=== PATIENT | male | born 1965 | race Caucasian/White ===

== ENCOUNTER 2021-09-04 13:15 | Outpatient (RCR) | payer BC, SELFPAY ==
--- NOTE | 2021-08-14 09:15 | PTOPEVAL ---
PHYSICAL THERAPY EVALUATION AND PLAN OF CARE Thank you for referring Qamar Phillips to [facility].? The patient is scheduled to be seen for therapy? 2x/week for 4 weeks. Please review, sign, date and return this plan of care [place]. I agree with and certify that the following plan of care is medically necessary. Referring Physician Date Attending Provider: Jonah Cartwright APN Diagnosis left knee pain Onset 07/21/21 Subjective Information Qamar is here today after Query Text:As Reported By Patient/ acute left knee pain after Family working in the yard. He had an aspiration and steroid injection which was very successful. About a week ago he tweaked the knee again and it swelled quite a bit. He went back to crutches and is weaning off of them again. It is again starting to feel better. Self Report Pain Assessment Left Knee(s) Reported Pain Level 3 Pain Description Aching,Tightness Pain Frequency Acute Greatest Pain Intensity 5 Knee Range of Motion Left Knee Flexion Range of Motion - Active 111 Knee Extension Range of Motion - Active -5 Query Text: Knee Range of Motion Limitations Edema Lower Extremity Muscle Strength Testing Hip Strength Left Hip Flexion Strength 5 Normal Hip Extension Strength 4 Good Hip Abduction Strength 4 Good Hip Strength Comments atrophy noted to left gluteus medius and minimus Knee Strength Left Knee Flexion Strength 4+ Good + Knee Extension Strength 3+ Fair + Knee Strength Comments fair quad set - increased pain with full quad set Gait Pattern Trendelenburg Gait Other Gait Observations ambulated into clinic with single crutch but carried is mot of the way back; we discussed at length the opportunities to use crutches, such as when he is limping or if the pain requires him to use crutches; otherwise I encouraged him to ambulate as normally as he can without an assistive device. Stair Climbing Assistive Technique Alternating Steps Stair Climbing Direction Both Up and Down Stair Climbing Comments cautious both ascending and
--- NOTE | 2021-09-04 13:53 | PTOPEVAL ---
PHYSICAL THERAPY DISCHARGE NOTE Thank you for referring Qamar Phillips to [facility].? Please review, sign, date and return this plan of care [facility]. I agree with and certify that the following plan of care is medically necessary. Referring Physician Date Attending Provider: Jonah Cartwright APN Diagnosis left knee pain Onset 07/21/21 Subjective Information Qamar reports that he nay bout Query Text:As Reported By Patient/ 85% better and plateaued. He Family has some minor swelling that makes him aware of the knee but not real pain. Can do for himself what he wants and needs. Does have concern that the knee will interfere on occasion. Self Report Self Report Pain Level 0 Lower Extremity Range of Motion Knee Range of Motion Left Knee Flexion Range of Motion - Active 132 Knee Extension Range of Motion - Active 0 Query Text: Lower Extremity Muscle Strength Testing Hip Strength Left Hip Flexion Strength 5 Normal Hip Extension Strength 5 Normal Hip Abduction Strength 5 Normal Knee Strength Left Knee Flexion Strength 5 Normal Knee Extension Strength 5 Normal Gait Assessment Gait Pattern Assessment Gait Pattern No Deviations/Normal Stair Climbing Assessment Stair Climbing Assessment Stair Climbing Assistive Devices None Technique Alternating Steps Stair Climbing Direction Both Up and Down Stair Climbing Ability Independent PT Clinical Summary Qamar has participated in 3 weeks of physical therapy to address acute left knee pain with suspected meniscus tear. He reports that generally feeling very good with no significant concerns other than what might happen in the future. He no longer requires skilled PT. Will d/c at this time.
== END 2021-09-05 14:40 | disposition home or self-care (01) ==
LOC: ANHPT 13:15
PROVIDERS: PCP Family Medicine; Visit Provider Nurse Practitioner
DX: M25.562 Pain in left knee (principal)
CPT/HCPCS: 97110; 97112; 97140; 97161; 97530

== ENCOUNTER 2022-05-09 19:31 | Emergency (ER) | payer BC, SELFPAY ==
[2022-05-09] VITALS (20 sets, daily range): BP systolic 122–172; BP diastolic 72–88; PULSE 67–102; RESP 7–20; TEMP 36.6; O2SAT 94–100
--- NOTE | ~2022-05-09 | XR_ITS ---
EXAMINATION: XR chest 2V DATE: 05/09/2022 20:02 INDICATION: Palpitations TECHNIQUE: PA and lateral views of the chest were obtained. COMPARISON: Chest radiograph dated 08/30/2016 FINDINGS: Again seen is hyperexpansion of lungs with mild flattening of the diaphragm on the lateral projection . There is unchanged mild blunting at the bilateral costophrenic angles and posterior sulci most like ly pleural-parenchymal scarring although cannot exclude tiny bilateral pleural effusions. Mild linear atelectasis at the lingula. No other airspace opacities, pulmonary edema or pneumothorax. The cardio mediastinal silhouette is normal. Unchanged mild to moderate thoracic spondylosis with minimal to mil d anterior wedging of a few mid to lower thoracic vertebral bodies. IMPRESSION: 1. Chronic hyperexpansion of lungs with unchanged mild blunting at the costophrenic angles and independent freight agent ior sulci suggestive diagnostic of COPD with associated bibasilar pleural-parenchymal scarring versus less likely tiny pleural effusions. Reviewed, dictated and finalized at location A. HER INSTRUMENTAL IMPRESSION: 1. Chronic hyperexpansion of lungs with unchanged mild blunting at the costophr enic angles and posterior sulci suggestive diagnostic of COPD with associated b ibasilar pleural-parenchymal scarring versus less likely tiny pleural effusions .
--- NOTE | 2022-05-09 19:42 | ECG_ITS ---
Measurements Intervals [place] Rate: 89 P: 69 FL: 170 QRS: 47 QRSD: 103 T: 72 QT: 348 QTc: 424 Interpretive Statements SINUS RHYTHM WITH OCCASIONAL SUPRAVENTRICULAR PREMATURE COMPLEXES INCOMPLETE RIGHT BUNDLE BRANCH BLOCK [90+ ms QRS DURATION, TERMINAL R IN V1/V2, 40+ ms S IN I/aVL/V4/V5/V6] NO PREVIOUS ECG AVAILABLE FOR COMPARISON Electronically Signed On 05-10-2022 15:34:47 PRODUCTION HONING MACHINE OPERATOR by Tere Mosqueda M.D.
[2022-05-09 20:10] LABS: Basophils Percent Auto 0.3 % (0.2-1.2); Eosinophils Absolute Auto 0.1 K/mm3 (0-0.3); Eosinophils Percent Auto 1.6 % (0-4.4); Hematocrit 42.7 % (42.0-52.0); Hemoglobin 14.4 g/dL (14.0-18.0); Immature Granulocyte Absolute 0.02 K/mm3 (0.00-0.031); Immature Granulocyte Percent A 0.3 % (0-0.5); Lymphocytes Percent Auto 31.3 % (18.3-44.2); Mean Corpuscular HGB Conc 33.7 g/dl (32-36); Mean Corpuscular Hemoglobin 30.5 pg (26-34); Mean Corpuscular Volume 90.5 fl (80-100); Mean Platelet Volume 8.8 fl (7.4-10.4); Monocytes Absolute Auto 0.6 K/mm3 (0.1-0.6); Monocytes Percent Auto 8.8 % (2.6-8.5); Neutrophils Absolute Auto 3.7 K/mm3 (1.3-6.7); Neutrophils Percent Auto 57.7 % (45.5-73.1); Platelet Count Result 213 k/mm3 (150-375); Red Blood Count 4.72 M/mm3 (4.6-6.20); Red Cell Distribution Width 12.9 % (11.5-14.5); White Blood Count 6.4 K/mm3 (4.5-10.0)
[2022-05-09 20:24] LABS: Alanine Aminotransferase 42 U/L (6-50); Albumin Level 4.6 g/dL (3.5-5.1); Alkaline Phosphatase 62 U/L (38-126); Anion Gap 8 mmol/L (8-16); Aspartate Amino Transferase 28 U/L (17-59); Bilirubin,Total 0.7 mg/dL (0.2-1.3); Blood Urea Nitrogen 15 mg/dL (9-20); Calcium 9.2 mg/dL (8.4-10.2); Carbon Dioxide 30 mmol/L (22-30); Chloride 103 mmol/L (98-107); Estimated CRCL calculation 92 ml/min; Estimated Glomerular Filt Rate > 60; Glucose 180 mg/dL (65-110); Lipase 98 U/L (23-300); Potassium 3.4 mmol/L (3.4-5.0); Sodium 141 mmol/L (137-145)
[2022-05-09 20:30] LABS: INR 1.1; Prothrombin Time 13.7 Seconds (11.1-14.7)
[2022-05-09 20:34] LABS: Troponin I < 0.012 ng/mL (0.000-0.034)
--- NOTE | 2022-05-09 21:28 | ED.ARRPALP ---
HPI - Arrhythmia/Palpitations General Chief Complaint: Arrhythmia/Palpitations Stated Complaint: disrhythmia Time Seen by Provider: 05/09/22 20:55 History of Present Illness HPI narrative: Patient is a 57-year-old male with a history of hyperlipidemia presenting with palpitations. Patient states that for the last 3 days he has been feeling generally unwell. States that he just does not feel right. Reports having palpitations for the last day or so. States it feels like his heart is skipping a beat. He denies lightheadedness, diaphoresis, chest pain, shortness of breath. States that he has been urinating more frequently lately but denies dysuria or hematuria. States that today he has had a headache as well as decreased appetite. Denies numbness or weakness, fevers, rhinorrhea, sore throat, cough, abdominal pain, nausea or vomiting. Reports several episodes of diarrhea. Related Data Home Medications Medication Instructions Recorded Confirmed aspirin 81 mg tablet,delayed 81 mg PO DAILY 07/25/21 05/14/22 release (Anjali Low Dose Aspirin) multivitamin 1 tablet PO DAILY 09/06/21 05/14/22 Allergies Allergy/AdvReac Type Severity Reaction Status Date / Time No Known Allergies Allergy Verified 05/14/22 09:25 Review of Systems Review of Systems: All systems reviewed & are unremarkable except as noted in HPI and below PMFSH Past Medical History Medical History Mixed hyperlipidemia Normal colonoscopy (~2018) Pre-diabetes Surgical History Surgical History Cataract extraction status, right eye No history of previous surgery Family History Family History Mother Patient's mother is in good health Father Patient's father is in good health Family history of elevated blood lipids Grandparent Family history of malignant neoplasm of brain Family history of heart disease in male family member before age 55 Social History Social History (Updated 05/14/22 @ 09:28 by Pari Go [employer]ICE PSYCHIATRIC NURSE) Smoking status: Never smoker Second hand tobacco smoke exposure: No Smoking end date: 04/01/14 Alcohol intake: current Drinks per week: 5 Substance use: never Substance use type: does not use Lack of Transportation: No Lack of Food: Never True Current Housing: I Have Housing Concerned About Future Housing: No Difficulty Paying Gas/Electric Bills: No Difficulty Paying for Meds: No Currently Unemployed: No Education: Bachelor's Degree Difficulty w/ Childcare or Family Care: No Spiritual care concerns: No Agree to blood products: Yes Exam Narrative: GENERAL: Well-appearing, well-nourished, and in no acute distress. HEAD: Normocephalic, atraumatic. EYES: PERRLA and EOMI. ENT: Nares clear, no rhinorrhea or epistaxis. Mucous membranes moist. NECK: Supple. CHEST: Clear to auscultation. No respiratory distress. HEART: Regular rate and rhythm. No murmur heard. Normal peripheral pulses. ABDOMEN: Soft, nontender, nondistended EXTREMITIES: Normal range of motion. No edema. SKIN: Warm, dry, no rash. NEURO: No focal deficits. Alert and oriented x3. PSYCH: Normal mood and affect. Course Vital Signs Vital signs: Vital Signs Temperature 97.8 F 05/09/22 19:39 Pulse Rate 102 H 05/09/22 19:39 Respiratory Rate 18 05/09/22 19:39 Blood Pressure 172/88 H 05/09/22 19:39 Pulse Oximetry 100 05/09/22 19:39 Temperature 97.8 F 05/09/22 19:39 Pulse Rate 74 05/09/22 23:45 Respiratory Rate 15 05/09/22 23:45 Blood Pressure 126/76 05/09/22 23:35 Pulse Oximetry 94 05/09/22 23:35 MDM - Arrhythmia/Palpitations MDM Narrative Medical decision making narrative: Patient is a 57-year-old male presenting with general malaise, headache, and palpitations. Patient was hypertensive on arrival. He was
[2022-05-09] MEDS: KETOROLAC 15 MG/ML VIAL (*BKC) IV PUSH (21:31)
[2022-05-09] MEDS: SODIUM CHLORIDE 0.9% IV 1,000 ML 999 ML IV CONT (21:32)
[2022-05-09 21:41] LABS: Appearance Urine Clear (Clear); Bilirubin Urine Negative (Negative); Blood Urine Trace-intact (Negative); Color Urine Yellow (Yellow); Glucose Urine UA Negative (Negative); Ketones Urine Negative (Negative); Leukocyte Esterase Ur Negative LEU/UL (Negative); Nitrate Urine Negative (Negative); Protein Urine Negative (Negative); Specific Grav Ur 1.015 (1.001-1.035); Urobilinogen Urine 0.2 mg/dL (<2.0)
[2022-05-09 21:48] LABS: NT Pro B Type Natriuretic Pept 25 pg/mL (19.9-100)
[2022-05-09 21:56] LABS: Add Urine Microscopic? YES
[2022-05-09 22:19] LABS: Influenza A QL RT-PCR Negative (Negative); Influenza B QL RT-PCR Negative (Negative); RSV RNA, RT-PCR Negative (Negative); SARS-CoV-2 RNA PCR Negative
[2022-05-09 22:24] LABS: Hemoglobin A1C 5.6 % (<5.7)
[2022-05-09 23:22] LABS: Troponin I < 0.012 ng/mL (0.000-0.034)
== END 2022-05-09 23:52 | disposition home or self-care (01) ==
PROVIDERS: Emergency Provider Emergency Medicine; PCP Family Medicine
DX: R00.2 Palpitations (principal); R51.9 Headache, unspecified; R53.81 Other malaise; Z20.822 Contact with and (suspected) exposure to COVID-19
CPT/HCPCS: 36415; 71046; 80053; 81001; 83036; 83690; 83735; 83880; 84439; 84443; 84484; 85025; 85610; 85730; 87637; 93005; 96361; 96365; 96375; 99284; J0131; J1885; J7030

== ENCOUNTER 2024-08-07 08:28 | Outpatient (CLI) | payer BC, SELFPAY ==
--- NOTE | ~2024-08-07 | XR_ITS ---
XR cervical spine 4-5V 08/07/2024 08:43 Indication: Cervicalgia Procedure: 6 view cervical spine including flexion/extension views Comparison: No prior studies for comparison. Findings: Straightening of cervical lordosis. There is degenerative anterolisthesis at C4-5. There is disc narrowing at C5-6 and C6-7. Odontoid process is normal. There is left-sided facet hypertrophy a t C3-4, C4-5 and C5-6. No prevertebral soft tissue swelling. No alteration of alignment with flexion/ extension. Impression: 1: Moderate cervical spondylosis. Reviewed, dictated and finalized at location A. Impression: 1: Moderate cervical spondylosis.
== END 2024-08-07 08:29 | disposition home or self-care (01) ==
LOC: MICIMG 08:28
PROVIDERS: PCP Family Medicine; Visit Provider Family Medicine
DX: M43.02 Spondylolysis, cervical region (principal)
CPT/HCPCS: 72050

== ENCOUNTER 2025-03-29 09:57 | Outpatient (CLI) | payer BC, SELFPAY ==
--- NOTE | ~2025-03-29 | XR_ITS ---
XR knee LT 3V INDICATION: M25.562 - Pain in left knee . COMPARISON: None. FINDINGS: 3 views of the left knee demonstrate no acute fracture or dislocation. There is no joint effusion. IMPRESSION: Radiographic examination of the left knee demonstrates no acute fracture or dislocation. Reviewed, dictated and finalized at location S. ER MOLDER IMPRESSION: Radiographic examination of the left knee demonstrates no acute fracture or dis location.
== END 2025-03-29 09:58 | disposition home or self-care (01) ==
LOC: MICIMG 09:58
DX: M25.562 Pain in left knee (principal)
CPT/HCPCS: 73562